=== PATIENT | male | born 1985 | race Caucasian/White ===

== ENCOUNTER 2018-03-06 14:08 | Emergency (ER) | payer OTHER ==
[~2018-03-06] VITALS: Ht 193 cm; Wt 88.0 kg
[2018-03-06 17:06] VITALS: BP 122/63
== END 2018-03-06 17:08 | disposition home or self-care (01) ==
LOC: ER 14:09
DX: S90.02XA Contusion of left ankle, initial encounter (principal); R59.9 Enlarged lymph nodes, unspecified; M25.552 Pain in left hip; R07.89 Other chest pain; X50.0XXA Overexertion from strenuous movement or load, initial encounter; X50.9XXA Other and unspecified overexertion or strenuous movements or postures, initial encounter; Y93.89 Activity, other specified; Y92.89 Other specified places as the place of occurrence of the external cause; Y99.8 Other external cause status
CPT/HCPCS: 73610; 93971; 99284

== ENCOUNTER 2021-01-26 11:56 | Outpatient (CLI) | payer OTHER ==
[2021-01-26] MEDS ORDERED: CBD PO (12:55)
[2021-01-26 12:59] LABS: BASOPHILS % (AUTO) 0.4 % (0-1); EOSINOPHILS # (AUTO) 0.1 X10'3 (0-0.9); EOSINOPHILS % (AUTO) 1.2 % (0-6); LYMPHOCYTES # (AUTO) 1.6 X10'3 (1.1-4.8); LYMPHOCYTES % (AUTO) 27.8 % (21-51); MEAN CORPUSCULAR HEMOGLOBIN 30.9 PG (27.0-31.0); MEAN CORPUSCULAR VOLUME 90.9 FL (78-98); MEAN PLATELET VOLUME 6.8 FL (7.4-10.4); MONOCYTES # (AUTO) 0.7 X10'3 (0-0.9); MONOCYTES % (AUTO) 11.5 % (2-12); NEUTROPHILS # (AUTO) 3.3 X10'3 (1.8-7.7); NEUTROPHILS % (AUTO) 59.1 % (42-75); PRE OP HEMATOCRIT 44.1 % (42.0-52.0); PRE OP PLATELET COUNT 231 X10'3 (140-440); RED BLOOD COUNT 4.85 X10'6 (4.70-6.10); RED CELL DISTRIBUTION WIDTH 13.4 % (11.5-14.5)
[2021-01-26 13:16] LABS: ALBUMIN 4.1 G/DL (3.4-5.0); ALKALINE PHOSPHATASE 129 IU/L (46-116); BLOOD UREA NITROGEN 9 MG/DL (7-18); BUN/CREATININE RATIO 9.5 (5.4-32.0); CALCIUM 8.7 MG/DL (8.5-10.1); CHLORIDE 101 MMOL/L (99-107); CREATININE 0.95 MG/DL (0.60-1.10); PRE OP ALT 53 U/L (30-65); PRE OP ANION GAP 11 (8-16); PRE OP AST 28 U/L (10-37); PRE OP BILIRUB, TOTAL 0.7 MG/DL (0.0-1.0); PRE OP GLUCOSE 105 MG/DL (70-104); PRE OP SODIUM 140 MMOL/L (135-145); TOTAL CARBON DIOXIDE 28.5 MMOL/L (24-32); TOTAL PROTEIN 8.4 G/DL (6.4-8.2); eGFR > 90 ML/MIN
== END 2021-01-26 23:59 | disposition home or self-care (01) ==
LOC: PRE-OP 11:56 → EDSTATUS 02-02 07:30
PROVIDERS: ATTEND Surgery
DX: Z01.812 Encounter for preprocedural laboratory examination (principal); U07.1 COVID-19; K40.20 Bilateral inguinal hernia, without obstruction or gangrene, not specified as recurrent
CPT/HCPCS: 36415; 80053; 85025; U0003; U0005

== ENCOUNTER 2021-02-16 07:16 | Day surgery (SDC) | payer OTHER ==
[2021-02-16] VITALS (7 sets, daily range): BP systolic 101–137; BP diastolic 59–86
[~2021-02-16] VITALS: Ht 193 cm; Wt 99.7 kg
[~2021-02-16 07:16] MED LIST: BUPIVAcaine/PF 2.5 mg/ml (0.25%) 30ml vial ONE; LIDOcaine 1% 30ml preserv. free vial ONE; NO HOME MEDS; ceFAZolin inj. 3,000 MG in normal saline 100ml IV soln 100 ML IV ONE; famotidine 20mg tablet PO ONE; ringers solution, lacted 1,000 ML IV SCH
[2021-02-16 09:13] LABS: BASOPHILS % (AUTO) 0.4 % (0-1); EOSINOPHILS # (AUTO) 0.1 X10'3 (0-0.9); EOSINOPHILS % (AUTO) 1.9 % (0-6); LYMPHOCYTES # (AUTO) 1.7 X10'3 (1.1-4.8); LYMPHOCYTES % (AUTO) 31.3 % (21-51); MEAN CORPUSCULAR HEMOGLOBIN 31.2 PG (27.0-31.0); MEAN CORPUSCULAR HGB CONC 34.4 g/dL (33.0-36.5); MEAN CORPUSCULAR VOLUME 90.7 FL (78-98); MEAN PLATELET VOLUME 7.1 FL (7.4-10.4); MONOCYTES # (AUTO) 0.6 X10'3 (0-0.9); MONOCYTES % (AUTO) 11.2 % (2-12); NEUTROPHILS % (AUTO) 55.2 % (42-75); PRE OP HEMATOCRIT 44.6 % (42.0-52.0); PRE OP HEMOGLOBIN 15.3 g/dL (14.0-17.9); PRE OP PLATELET COUNT 263 X10'3 (140-440); RED BLOOD COUNT 4.92 X10'6 (4.70-6.10); RED CELL DISTRIBUTION WIDTH 13.2 % (11.5-14.5)
[2021-02-16 09:24] LABS: ALBUMIN 3.9 G/DL (3.4-5.0); ALKALINE PHOSPHATASE 97 IU/L (46-116); BLOOD UREA NITROGEN 13 MG/DL (7-18); BUN/CREATININE RATIO 12.9 (5.4-32.0); CALCIUM 8.6 MG/DL (8.5-10.1); CHLORIDE 101 MMOL/L (99-107); CREATININE 1.01 MG/DL (0.60-1.10); PRE OP ANION GAP 9 (8-16); PRE OP AST 30 U/L (10-37); PRE OP BILIRUB, TOTAL 0.4 MG/DL (0.0-1.0); PRE OP GLUCOSE 101 MG/DL (70-104); PRE OP POTASSIUM 4.2 MMOL/L (3.4-5.1); PRE OP SODIUM 137 MMOL/L (135-145); TOTAL CARBON DIOXIDE 27.4 MMOL/L (24-32); eGFR 85 ML/MIN
[2021-02-16 09:35] LABS: PRE OP ALT 54 U/L (30-65)
[2021-02-16] MEDS ORDERED: sevoflurane 250ml liquid IH ONE (10:48)
[2021-02-16] MEDS ORDERED: hydrALAZINE 20mg/ml inj. IV PRN (10:50)
[2021-02-16] MEDS ORDERED: morphine 2 MG/ML inj. syringe IV PRN (10:50)
[2021-02-16] MEDS ORDERED: proCHLORperazine 10 MG/2 ml inj IV PRN (10:50)
[2021-02-16] MEDS ORDERED: morphine 4 MG/ML inj SYRINge IV PRN (10:50)
[2021-02-16] MEDS ORDERED: ringers solution, lacted 1,000 ML IV SCH (10:50)
[2021-02-16] MEDS ORDERED: labetalol 20mg/4ml (5mg/ml) syringe IV PRN (10:50)
[2021-02-16] MEDS ORDERED: meperidine/PF 25mg/ml syringe IV PRN ×2 (10:50)
[2021-02-16] MEDS ORDERED: acetaminophen 1,000mg/100ml IV 100 ML IV PRN (10:50)
[2021-02-16] MEDS ORDERED: ondansetron/PF 4mg/2ml inj IV PRN (10:50)
[2021-02-16] MEDS ORDERED: midazolam 1 mg/ML 2ml injection ONE (10:54)
[2021-02-16] MEDS ORDERED: fentaNYL /PF 50mcg/ml 5ml ampule ONE (10:57)
[2021-02-16] MEDS ORDERED: LIDOcaine 2% 5ml jelly ONE (10:57)
[2021-02-16] MEDS ORDERED: propofol inj 20 ML IV ONE (11:12)
[2021-02-16] MEDS ORDERED: rocuronium 10mg/ml inj IV ONE (11:12)
[2021-02-16] MEDS ORDERED: neostigmine methylsulfate 1 MG/ML 10ml vial ONE ×2 (11:12→12:11)
[2021-02-16] MEDS ORDERED: LIDOcaine 2% (20mg/ml) 5ml vial ONE (11:12)
[2021-02-16] MEDS ORDERED: dexamethasone sod phosphate 4mg/ml inj. ONE (11:13)
[2021-02-16] MEDS ORDERED: ondansetron/PF 4mg/2ml inj ONE (11:13)
[2021-02-16] MEDS ORDERED: glycopyrrolate 0.2mg/ml inj ONE (12:11)
--- NOTE | 2021-02-16 12:29 | NUR ---
Received from OR via , accompanied by Anesthesiologist DR PERSAUD and report given by Anesthesiolgist. AWAKENS TO VOICE. VITALS STABLE. DRESSINGS DI. WILL MEDICATE FOR C/O ABD PAIN.
[2021-02-16] MEDS ORDERED: HYDROcodone/acetaminophen 10/325mg tab PO PRN ×2 (12:30)
[2021-02-16] MEDS: meperidine/PF 25mg/ml syringe IV PRN ×2 (12:34→12:45)
--- NOTE | 2021-02-16 13:49 | NUR ---
AWAKE AND ORIENTED. VITALS STABLE. DRESSINGS DI. STATES PAIN IMPROVING. HOME WITH HIS AT THIS TIME.
== END 2021-02-16 13:49 | disposition home or self-care (01) ==
LOC: PAS 07:16
PROVIDERS: ATTEND Surgery
DX: K40.20 Bilateral inguinal hernia, without obstruction or gangrene, not specified as recurrent (principal); K42.0 Umbilical hernia with obstruction, without gangrene; D17.6 Benign lipomatous neoplasm of spermatic cord; Z91.030 Bee allergy status; Z91.018 Allergy to other foods; Z72.89 Other problems related to lifestyle; Z98.890 Other specified postprocedural states; Z87.828 Personal history of other (healed) physical injury and trauma; Z79.899 Other long term (current) drug therapy; Z82.49 Family history of ischemic heart disease and other diseases of the circulatory system
CPT/HCPCS: 36415; 49587; 49650; 80053; 85025; C1781; J0131; J0690; J1100; J2001; J2175; J2250; J2405; J2704; J2710; J3010; J3490; S2900; A4215; A4618; J7120